=== PATIENT | female | born 1965 | race Caucasian/White ===

== ENCOUNTER → 2021-12-27 | Day surgery (SDC) | payer OTHER ==
[~2021-12-27] VITALS: Ht 160 cm; Wt 77.1 kg
[~2021-12-27] MED LIST: ACETAMINOPHEN500 M1 PO; PROTONIX 40MG T40 MG PO; SYNTHROID88 MCG PO; WELLBUTRIN XL300 MG PO
== END | disposition home or self-care (01) ==
LOC: FAS 10:46
DX: M65.332 Trigger finger, left middle finger (principal); M65.842 Other synovitis and tenosynovitis, left hand; H35.30 Unspecified macular degeneration; E78.5 Hyperlipidemia, unspecified; K22.70 Barrett's esophagus without dysplasia; E03.9 Hypothyroidism, unspecified; Z88.0 Allergy status to penicillin; Z88.2 Allergy status to sulfonamides; Z79.891 Long term (current) use of opiate analgesic; Z79.899 Other long term (current) drug therapy
CPT/HCPCS: J2250; J2405; J2704; J3010; J7120